=== PATIENT | male | born 1965 | race Caucasian/White ===

== ENCOUNTER 2023-03-03 08:17 | Outpatient (OUT) | payer OTHER, SELFPAY ==
[2023-03-03 09:34] LABS: Alanine Aminotransferase 19 U/L (16-63); Albumin Level 3.4 g/dL (3.4-5.0); Alkaline Phosphatase 29 U/L (46-116); Anion Gap 10.7; Aspartate Amino Transferase 13 U/L (15-37); BUN Creatinine Ratio 15.5; Bilirubin Total 0.4 mg/dL (0.2-1.0); Calcium 8.7 mg/dL (8.5-10.1); Carbon Dioxide 28.8 mmol/L (21.0-32.0); Chloride 104 mmol/L (98-107); Chol HDL Ratio 3.8; Cholesterol 162 mg/dL (<=200); Estimated GFR (African America >60 (>=60); Estimated GFR (Non-African Ame >60 (>=60); Globulin 3.3 g/dL; Glucose 110 mg/dL (74-106); HDL Cholesterol 43 mg/dL (40-60); LDL Cholesterol Calculated 106.6 mg/dL; Potassium 4.5 mmol/L (3.5-5.1); Sodium 139 mmol/L (136-145); Total Protein 6.7 g/dL (6.4-8.2); Triglycerides 62 mg/dL (<=150); VLDL CHOLESTEROL 12.4 mg/dL
== END 2023-03-03 08:18 | disposition home or self-care (01) ==
LOC: LAB 08:17
PROVIDERS: PCP Family Medicine; Visit Provider Family Medicine
DX: Z13.220 Encounter for screening for lipoid disorders (principal); Z13.1 Encounter for screening for diabetes mellitus
CPT/HCPCS: 36415; 80053; 80061

== ENCOUNTER 2023-08-22 16:32 | Outpatient (OUT) | payer OTHER, SELFPAY ==
[2023-08-22 17:07] LABS: Valproic Acid 72.5 ug/mL (50.0-100.0)
== END 2023-08-22 16:33 | disposition home or self-care (01) ==
LOC: LAB 16:33
PROVIDERS: PCP Family Medicine; Visit Provider Family Medicine
DX: G40.309 Generalized idiopathic epilepsy and epileptic syndromes, not intractable, without status epilepticus (principal)
CPT/HCPCS: 36415; 80164

== ENCOUNTER 2024-02-16 08:11 | Outpatient (OUT) | payer OTHER, SELFPAY ==
--- OUTSIDE RECORDS SUMMARY | 2024-02-16 08:16 | XMS_ITS | CCD ---
Author Organization [facility] ion Partnership [facility] Care Team Providers Care Deputy Director Of Public Works Name Role Phone BELINDA ., DR MC Attending Unavailable HEMEYER ., DR MC Consulting Unavailable HEMEYER ., DR MC Primary Care Unavailable HEMEYER ., DR MC Admitting Unavailable HEMEYER ., DR MC Attending Unavailable HEMEYER ., DR MC Consulting Unavailable HEMEYER ., DR MC Primary Care Unavailable HEMEYER ., DR MC Admitting Unavailable HEMEYER ., DR MC Consulting Unavailable HEMEYER ., DR MC Primary Care Unavailable HEMEYER ., DR CM Admitting Unavailable HEMEYER ., DR MC Attending Unavailable Helenyer Yovanny SANON Primary Care Provider YOVANNY TREVINO Attending Unavailable YOVANNY TREVINO Attending Unavailable YOVANNY TREVINO Attending Unavailable Allergies Allergy Classification Reported Allergen(s) Allergy Type Date of Onset Reaction(s) Facility (1 source) Ciprofloxacin Drug Allergy [facility] (2 sources) Ciprofloxacin Drug Allergy 11-21-2022 [facility] Medications Current Medications Medication Drug Class(es) Dates Sig (Normalized) Sig (Original) calcium citrate 1040 mg oral tablet (2 sources) take 1 tablet by mouth five times weekly calcium citrate 1040 MG tablet Take 1 tablet by mouth 5 (five) times a week. 0 Active cholecalciferol 0.125 mg oral tablet (2 sources) Vitamin D take 1 capsule by mouth once daily cholecalciferol (D3-5) 5,000 Units tablet Take 1 capsule by mouth 1 (one) time each day at the same time. 0 Active chondroitin sulfates 200 mg / glucosamine hydrochloride 250 mg oral tablet (2 sources) take 1 tablet by mouth in the morning Glucosamine-Chondroi tin (Osteo Bi-Flex Regular Strength) 250-200 MG tablet Take 1 tablet by mouth in the morning and 1 tablet before bedtime. 0 Active divalproex sodium 500 mg delayed release oral tablet (2 sources) Mood Stabilizer, Anti-epileptic Agent Start: 03-13-2023 End: 09-09-2023 take 1 tablet by mouth in the morning divalproex (Depakote) 500 MG EC tablet Indications: Nonintractable generalized idiopathic epilepsy without status epilepticus (CMS/HCC) Take 1 tablet (500 mg) by mouth in the morning and 1 tablet (500 mg) before bedtime. 180 tablet 1 03/13/2023 09/09/2023 Active Problems Active Problems Problem Classification Problem Date Documented Date Episodic/Chronic Developmental disorders (3 sources) Unspecified intellectual disabilities; Translations: [Developmental mental disorder] Onset: 09-21-2022 11-21-2022 Chronic Epilepsy; convulsions (6 sources) Generalized idiopathic epilepsy and epileptic syndromes, not intractable, without status epilepticus; Translations: [Idiopathic generalized epilepsy] Onset: 09-13-2022 Chronic Nutritional deficiencies (2 sources) Vitamin D deficiency; Translations: [Vitamin D deficiency, unspecified] Onset: 11-21-2022 11-21-2022 Chronic Other aftercare (1 source) Encounter for therapeutic drug level monitoring; Translations: [ENC THERAPEUTC DRUG LEVL MONITORING] Onset: 09-21-2022 Episodic Other aftercare (1 source) Other prison (current) drug therapy; Translations: [OTH HALFWAY CURRENT DRUG THERAPY] Onset: 09-21-2022 Episodic Other ear and sense organ disorders (3 sources) Excessive cerumen in ear canal ; Translations: [Impacted cerumen, bilateral] Onset: 11-21-2022 11-21-2022 Episodic Other nutritional; endocrine; and metabolic disorders (2 sources) Body mass index 30+ - obesity; Translations: [Obesity, unspecified] Onset: 11-21-2022 11-21-2022 Chronic Spondylosis; intervertebral disc disorders; other back problems (4 sources) Degeneration of lumbar intervertebral disc; Translations: [Other intervertebral disc degeneration, lumbar region] Onset: 11-21-2022 11-21-2022 Chronic Past or Other Problems Problem Classification Problem Date Documented Da te Episodic/Chronic Calculus of urinary tract (2 sources) Kidney stone; Translations: [Calculus of kidney] Onset: 11-21-2022 11-21-2022 Episodic Other screening for suspected conditions (not mental disorders or infectious disease) (2 sources) Encounter for screening for diabetes mellitus; Translations: [Encounter for screening for lipoid disorders] Onset: 03-15-2022 Episodic Results Test Name Value Interpretation Reference Range Facil ity VALPROIC ACID, TOTAL AND CURT Ryan 09-18-2022 Free Valproic Acid (Depakote) 23.5 ug/mL Critically high 6.0-22.0 [facility] Comment on above: Result Comment: Dete ction Limit = 0.5 Patient drug level exceeds published reference range. Evaluate clinically for signs of potential toxicity. Performed at: BN Performed By: #### V ALTF #### [facility] [address] [place] [address] Dr. Codey Elizondo Valproic Acid 78 ug/mL Normal 50-100 [facility] Comment on above: Result Comment: Dete ction Limit = 4 <4 indicates None Detected . Toxicity may occur at levels of 100-500. Measurements of free unbound valproic acid may improve the assess- ment of clinical response. Performed at: CB Performed By: #### V ALTF #### [facility] [address] [address] [address] Codey Elizondo VALPROIC ACID, TOTAL AND CURT Ryan 09-13-2022 Free Valproic Acid (Depakote) QNSTST Normal [facility] Comment on above: Result Comment: Test not performed. Insufficient specimen to perform or complete analysis. contacted Mariel at your facility on 09-13-2022 Detection Limit = 0.5 Performed at: BN Performed By: #### V ALTF #### [facility] [address] [address] [address] Codey Elizondo Valproic Acid 66 ug/mL Normal 50-100 [facility] Comment on above: Result Comment: Dete ction Limit = 4 <4 indicates None Detected . Toxicity may occur at levels of 100-500. Measurements of free unbound valproic acid may improve the assess- ment of clinical response. Performed at: CB Performed By: #### V ALTF #### [facility] [address] [address] [address] Codey Elizondo DEPAKENE/VALPROICon 03-11-20 22 DEPAKENE 86.9 ug/ml Normal 50.0-100.0 [facility] Comment on above: Performed By: #### L IPID, VALP, CMP #### [facility] [address] [address] [address] Codey Elizondo LIPID PROFILEon 03-11-2022 CHOL-HDL RATIO NORM SEE BELOW Normal [facility] Comment on above: Result Comment: 3.3 - 4.4 LOW RISK 4.4 - 7.1 AVERAGE RISK 7.1 - 11.0 MODERATE RISK >11.0 HIGH RISK Performed By: #### L IPID, VALP, CMP #### [facility] [address] [address] [address] Codey Elizondo Cholesterol [Mass/Vol] 174 mg/dL Normal <=200 [facility] Comment on above: Performed By: #### L IPID, VALP, CMP #### [facility] [address] [address] [address] Codey Elizondo Cholesterol in HDL [Mass/Vol] 41 mg/dL Normal 40-60 [facility] Comment on above: Performed By: #### L IPID, VALP, CMP #### [facility] [address] [address] [address] Codey Elizondo Cholesterol in LDL [Mass/Vol] 114.6 mg/dL Normal [facility] Comment on above: Performed By: #### L IPID, VALP, CMP #### [facility] [address] [address] [address] Codey Elizondo Cholesterol.total/C holesterol in HDL [Mass ratio] 4.2 {ratio} Normal [facility] Comment on above: Performed By: #### L IPID, VALP, CMP #### [facility] [address] [address] [address] Codey Elizondo HDL NORMAL > or = 60 mg/dl - LO W CARDIOVASCULAR RISK <40 mg/dl - HIGH CARDIOVASCULAR RISK Normal [facility] Comment on above: Performed By: #### L IPID, VALP, CMP #### [facility] [address] [address] [address] Codey Elizondo LDL CALC NORMAL SEE BELOW Normal [facility] Comment on above: Result Comment: <100 mg/dl OPTIMAL 100 - 129 mg/dl NEAR OR ABOVE OPTIMAL 130 - 159 mg/dl BORDERLINE HIGH 160 - 189 mg/dl HIGH >190 mg/dl VERY HIGH Performed By: #### L IPID, VALP, CMP #### [facility] [address] [address] [address] Codey Elizondo Triglyceride [Mass/Vol] 92 mg/dL Normal <=150 [facility] Comment on above: Performed By: #### L IPID, VALP, CMP #### [facility] [address] [address] [address] Codey Elizondo VLDL CALC 18.4 mg/dL Normal [facility] Comment on above: Performed By: #### L IPID, VALP, CMP #### [facility] [address] [place] [address] Dr. Codey Elizondo PROF 14(COMP METB)on 022 Albumin [Mass/Vol] 3.5 g/dL Normal 3.4-5.0 [facility] Comment on above: Performed By: #### L IPID, VALP, CMP #### [facility] [address] [address] [address] Codey Elizondo Albumin/Globulin [Mass ratio] 1.0 {ratio} Normal [facility] Comment on above: Performed By: #### L IPID, VALP, CMP #### [facility] [address] [address] [address] Codey Elizondo ALP [Catalytic activity/Vol] 33 U/L Critically low 46-116 [facility] Comment on above: Performed By: #### L IPID, VALP, CMP #### [facility] [address] [address] [address] Codey Elizondo ALT [Catalytic activity/Vol] 19 U/L Normal 16-63 [facility] Comment on above: Performed By: #### L IPID, VALP, CMP #### [facility] [address] [address] [address] Codey Elizondo Anion gap [Moles/Vol] 9.8 mmol/L Normal [facility] Comment on above: Performed By: #### L IPID, VALP, CMP #### [facility] [address] [address] [address] Codey Elizondo AST [Catalytic activity/Vol] 17 U/L Normal 15-37 [facility] Comment on above: Performed By: #### L IPID, VALP, CMP #### [facility] [address] [address] [address] Codey Elizondo Bilirubin [Mass/Vol] 0.5 mg/dL Normal 0.2-1.0 [facility] Comment on above: Performed By: #### L IPID, VALP, CMP #### [facility] [address] [place] [address] Dr. Codey Elizondo Calcium [Mass/Vol] 8.7 mg/dL Normal 8.5-10.1 [facility] Comment on above: Performed By: #### L IPID, VALP, CMP #### [facility] [address] [place] [address] Dr. Codey Elizondo Chloride [Moles/Vol] 103 mmol/L Normal 98-107 [facility] Comment on above: Performed By: #### L IPID, VALP, CMP #### [facility] [address] [place] [address] Dr. Codey Elizondo CO2 [Moles/Vol] 27.8 mmol/L Normal 21.0-32.0 [facility] Comment on above: Performed By: #### L IPID, VALP, CMP #### [facility] [address] [place] [address] Dr. Codey Elizondo Creatinine [Mass/Vol] 1.08 mg/dL Normal 0.70-1.30 [facility] Comment on above: Performed By: #### L IPID, VALP, CMP #### [facility] [address] [place] [address] Dr. Codey Elizondo EGFR-AF ZIMBABWEAN >60 Normal >=60 [facility] Comment on above: Performed By: #### L IPID, VALP, CMP #### [facility] [address] [address] [address] Codey Elizondo EGFR-NON AF ZIMBABWEAN >60 Normal >=60 [facility] Comment on above: Performed By: #### L IPID, VALP, CMP #### [facility] [address] [address] [address] Codey Elizondo Globulin (S) [Mass/Vol] 3.4 g/dL Normal [facility] Comment on above: Performed By: #### L IPID, VALP, CMP #### [facility] [address] [address] [address] Codey Elizondo Glucose [Mass/Vol] 108 mg/dL Critically high 74-106 [facility] Comment on above: Performed By: #### L IPID, VALP, CMP #### [facility] [address] [address] [address] Codey Elizondo Potassium [Moles/Vol] 4.6 mmol/L Normal 3.5-5.1 [facility] Comment on above: Performed By: #### L IPID, VALP, CMP #### [facility] [address] [address] [address] Codey Elizondo Protein [Mass/Vol] 6.9 g/dL Normal 6.4-8.2 [facility] Comment on above: Performed By: #### L IPID, VALP, CMP #### [facility] [address] [address] [address] Codey Elizondo Sodium [Moles/Vol] 136 mmol/L Normal 136-145 [facility] Comment on above: Performed By: #### L IPID, VALP, CMP #### [facility] [address] [address] [address] Codey Elizondo Urea nitrogen [Mass/Vol] 12.0 mg/dL Normal 7.0-18.0 [facility] Comment on above: Performed By: #### L IPID, VALP, CMP #### [facility] [address] [address] [address] Codey Elizondo Urea nitrogen/Creatinine [Mass ratio] 11.1 mg/mg Normal [facility] Comment on above: Performed By: #### L IPID, VALP, CMP #### [facility] [address] [address] [address] Codey Elizondo Encounters Encounter Date Encounter Type Care Provider Facility Start: 02-05-2024 End: 02-05-2024 ambulatory YOVANNY TREVINO Not Available Start: 09-04-2023 End: 09-06-2023 ambulatory YOVANNY TREVINO Not Available Start: 07-17-2023 End: 07-17-2023 Patient encounter procedure Yovanny Trevino MD Work Phone: [facility] Comment on above: Excessive cerumen in both ear canals (Primary Dx) Start: 07-17-2023 End: 07-18-2023 ambulatory YOVANNY TREVINO Not Available Start: 07-17-2023 Chart abstracting Yovanny patricio MD Work Phone: [facility] Start: 09-13-2022 End: 09-14-[address] YOVANNY TREVINO . Facility: Start: 09-06-2022 End: 09-07-[address] YOVANNY TREVINO . Facility: Start: 03-11-2022 End: 03-12-[address] YOVANNY TREVINO . Facility: Procedures Date Procedure Procedure Detail Performing Clinician Start: 11-23-2017 Colonoscopy Yovanny patricio MD Work Phone: Plan of Treatment Date Care Activity Detail Author Start: 11-24-2027 Screening for malign ant neoplasm of colon [facility] Start: 09-04-2023 End: 09-04-2023 Patient encounter procedure 09/04/2023 4:30 PM EDT Office Visit [facility] [address] [place] [address] Yovanny Trevino MD [address] [place] [address] (Fax) [facility] Start: 07-17-2023 End: 07-17-2023 Patient encounter procedure 07/17/2023 4:30 PM EST Office Visit [facility] [address] [place] [address] Yovanny Trevino MD [address] [place] [address] (Fax) [facility] Start: 1965 Screening for malign ant neoplasm of colon [facility] Immunizations Immunization Date Immunization Notes Care Provider Fa cility 03-15-2023 SARS-COV-2 (COVID-19 ) vaccine, mRNA, spike protein, LNP, PF, junior-sucrose, 30 mcg/0.3 mL Yovanny Trevino MD Work Phone: [facility] 03-02-2023 influenza, injectabl e, quadrivalent, preservative free Yovanny Trevino MD Work Phone: [facility] 06-07-2022 zoster vaccine recombinant E vincent Trevino MD Work Phone: [facility] 02-16-2022 zoster vaccine recombinant E vincent Trevino MD Work Phone: [facility] 03-06-2019 influenza, injectabl e, quadrivalent, contains preservative Yovanny Trevino MD Work Phone: [facility] 03-12-2018 influenza, seasonal, injectable Yovanny Trevino MD Work Phone: [facility] 03-14-2016 influenza, injectabl e, quadrivalent, contains preservative Yovanny Trevino MD Work Phone: [facility] 04-01-2015 influenza, injectabl e, quadrivalent, contains preservative Yovanny Trevino MD Work Phone: [facility] 03-11-2015 influenza, seasonal, injectable, preservative free Yovanny Trevino MD Work Phone: [facility] 04-16-2014 influenza, injectabl e, quadrivalent, contains preservative Yovanny Trevino MD Work Phone: [facility] 03-28-2013 influenza, seasonal, injectable Yovanny Trevino MD Work Phone: [facility] Healthcare 04-28-2002 pneumococcal polysaccharide vaccine, 23 valent Yovanny Trevino MD Work Phone: [facility] Healthcare Payers Date Payer Category Payer Unknown [employer] [id number] 2022-Present [address] [place] [address] [id number] 2022 Unknown [id number] 1967 Unknown [id number] 1967 Unknown [id number] 1967 Unknown [id number] 1967 Unknown [id number] 1967 Unknown [id number] 1967 Unknown [id number] 1959 Unknown [id number] Social History Date Type Detail Facility Start: 11-21-2022 Tobacco smoking stat [facility] Never smoked tobacco [facility] Start: 11-21-2022 Tobacco use and exposure Smokeless tobacco non-user [facility] Start: 03-13-2023 Alcohol intake Ex-drinker (finding) [facility] Start: 03-13-2023 History of Social function [facility] Start: 03-13-2023 Tobacco use panel [facility] Start: 11-27-2022 Education 21 [facility] Start: 1965 Sex Assigned At Not on file [facility] NEGATED: Highlighted rowStart: NINF History of tobacco use Passive smoker [facility] History of Present illness Narrative 07-17-2023 Yovanny Trevino MD - 07/17/2023 4:30 PM EST Note Date & Type Note Facility 07-17-2023 History of Presen t illness Narrative Patient ID: Everardo Hood is a 57 y.o. male who presents for: Cerumen Impaction Everardo presents with just wanting us to recheck his ears as he gets repeated cerumen impactions, and we have agreed to just do this for him on a regular schedule. He denies any hearing issues, pain Allergies Allergen Reactions Ciprofloxacin Other Reaction(s): dizziness Current Outpatient Medications Medication Instructions calcium citrate 1040 MG tablet 1 tablet, Oral, 5 times weekly cholecalciferol (D3-5) 5,000 Units tablet 1 capsule, Oral, Every 24 hours divalproex (DEPAKOTE) 500 mg, Oral, 2 times daily Glucosamine-Chondroitin (Osteo Bi-Flex Regular Strength) 250-200 MG tablet 1 tablet, Oral, 2 times daily Assessment/Plan Diagnoses and all orders for this visit: Excessive cerumen in both ear canals His bilateral ear canals have soft appearing cerumen approximately two thirds of the lower portion of the canal is filled. I can just barely see the TM over the top. There was able to manually swiped most of it away. We did do a hydrogen peroxide water flush and we are able to get the rest removed for him. There was one tiny punctate point of bleeding in the left ear canal. He denied any pain. We will see him again as needed. There is no charge for today's services. documented in this encounter [facility] Evaluation note Note Date & Type Note Facility Evaluation note Diagnosis Excessive cerumen in both ear canals- Primary documented in this encounter [facility] Summary Purpose Family History No Family History Records FoundNo Family History Records Found Advance Directives No Advanced Directives Records FoundDocuments on File Type Date Recorded Patient Guide Visitor Expl anation Advance Directives and Living Will 10/31/2017 2017-10-31 Health Ca re POA Additional Source Comments (unrecognized sect ion and content) No Status Records FoundNo Status Records Found INFORMATION SOURCE (unrecogn ized section and content) DATE CREATED AUTHOR 09/22/2022 [facility] DATE CREATED AUTHOR AUTHOR'S TESS ATBURAK 02/07/2024 [facility] Care Teams (unrecognized sec tion and content) Deputy Director Of Public Works Relationship Specialty Start Date End Date Yovanny Trevino MD [address] [place] [address] PCP - General Family Medicine 11/15/22 Deputy Director Of Public Works Relationship Specialty Start Date End Date Yovanny Trevino MD [address] [place] [address] PCP - General Family Medicine 11/15/22 FOR RECORDS PERTAINING TO PATIENTS WHO ARE OR HAVE BEEN ENROLLED IN A CHEMICAL DEPENDENCY/SUBSTANCEABUSE PROGRAM, SOME INFORMATION MAY BE OMITTED. This clinical summary was aggregated from multiple sources. Caution should be exercised in using it in the provision of clinical care. This summary normalizes information from multiple sources, and as a consequence, information in this document may materially change the coding, format and clinical context of patient data. In addition, data may be omitted in some cases. CLINICAL DECISIONS SHOULD BE BASED ON THE PRIMARY CLINICAL RECORDS. [employer] provides no warranty or guarantee of the accuracy or completeness of information in this document.
[2024-02-16 11:32] LABS: Sodium 136 mmol/L (136-145)
[2024-02-16 11:33] LABS: Alanine Aminotransferase 23 U/L (16-63); Anion Gap 12.2; Aspartate Amino Transferase 22 U/L (15-37); BUN Creatinine Ratio 16.8; Bilirubin Total 0.4 mg/dL (0.2-1.0); Carbon Dioxide 27.5 mmol/L (21.0-32.0); Chloride 101 mmol/L (98-107); Estimated GFR (African America >60 (>=60); Estimated GFR (Non-African Ame >60 (>=60); Glucose 101 mg/dL (74-106); Potassium 4.7 mmol/L (3.5-5.1)
[2024-02-16 11:34] LABS: Albumin Level 3.5 g/dL (3.4-5.0); Alkaline Phosphatase 39 U/L (46-116); Cholesterol 190 mg/dL (<=200); Globulin 3.4 g/dL; HDL Cholesterol 47 mg/dL (40-60); Total Protein 6.9 g/dL (6.4-8.2); Triglycerides 67 mg/dL (<=150); VLDL CHOLESTEROL 13.4 mg/dL
[2024-02-16 11:35] LABS: Valproic Acid 64.4 ug/mL (50.0-100.0)
== END 2024-02-16 08:12 | disposition home or self-care (01) ==
LOC: LAB 08:14
PROVIDERS: PCP Family Medicine; Visit Provider Family Medicine
DX: N20.0 Calculus of kidney (principal); G40.309 Generalized idiopathic epilepsy and epileptic syndromes, not intractable, without status epilepticus; Z13.1 Encounter for screening for diabetes mellitus; Z13.220 Encounter for screening for lipoid disorders
CPT/HCPCS: 36415; 80053; 80061; 80164